=== PATIENT | male | born 2000 | race Caucasian/White ===

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

== ENCOUNTER 2020-07-09 06:16 | Outpatient (CLI) | payer OTHER, MEDICAID ==
[~2020-07-09] VITALS: Ht 167.7 cm; Wt 68.2 kg
[~2020-07-09 06:16] MED LIST changes: -ARIP5TAB12 GT; +ARIP5TAB12 PO; -DIVA125T2 GT; +DIVA125T2 PO; -IBUP-1773 GT; +IBUP-1773 PO; -LORA1TAB GT; +LORA1TAB PO; -ONDN4T GT; +ONDN4T PO; -POLY17PO6 GT; +POLY17PO6 PO; -PROM6.2516 GT; +PROM6.2516 PO
[2020-07-13] MEDS ORDERED: LACO150T2 PO (09:03)
== END 2020-07-13 15:23 | disposition home or self-care (01) ==
LOC: PREOP 06:16
PROVIDERS: ATTEND Dentist
DX: Z01.818 Encounter for other preprocedural examination (principal)

== ENCOUNTER 2020-07-14 10:35 | Day surgery (SDC) | payer OTHER, MEDICAID ==
[~2020-07-14] VITALS: Ht 167.7 cm; Wt 68.2 kg
[2020-07-14] VITALS (7 sets, daily range): BP systolic 103–134; BP diastolic 60–90
[~2020-07-14 10:35] MED LIST changes: +LACO150T2 PO
[2020-07-14] MEDS ORDERED: LACTATED RINGERS 1,000 ML IV PRN (11:00)
[2020-07-14] MEDS ORDERED: ONDANSETRON 4 MG/2 ML (SDV) Z0FRAN ONE (11:19)
[2020-07-14] MEDS ORDERED: proPOfol 200 MG/20 ML (DIPRIVAN) VIAL IV ONE (11:19)
[2020-07-14] MEDS ORDERED: ROCURONIUM 10 MG/ML 5 ML SYRINGE IV ONE (11:19)
[2020-07-14] MEDS ORDERED: LIDOCAINE PF 2% 5 ML (XYLOCAINE) VIAL ONE (11:19)
[2020-07-14] MEDS ORDERED: fentaNYL INJ 100 MCG/2 ML AMP ONE (11:19)
[2020-07-14] MEDS ORDERED: SEVOFLURANE (ULTANE) 15 ML INHAL SOLN ONE ×3 (11:19→12:59)
--- NOTE | 2020-07-14 11:41 | Progress Note-Pre Operative ---
Pre-Operative Progress Note H&P Reviewed The H&P was reviewed, patient examined and no changes noted. Date Seen by Provider: July 14, 2020 Time Seen by Provider: 11:41 Date H&P Reviewed: July 14, 2020 Time H&P Reviewed: 11:41 Pre-Operative Diagnosis: Dental caries, fractured nondenominational and uncooperative behavior ASHU BERNABE DMD July 14, 2020 11:41
[2020-07-14] MEDS ORDERED: GLYCOPYRROLATE 0.2 MG/ML (ROBINUL) 2 ML VIAL ONE (11:44)
[2020-07-14] MEDS ORDERED: NEOSTIGMINE 3 MG/3 ML VIAL ONE (11:44)
[2020-07-14] MEDS ORDERED: ONDANSETRON 4 MG/2 ML (SDV) Z0FRAN IVP PRN (13:30)
--- NOTE | 2020-07-14 14:59 | Anesthesia-General Post-Op ---
General Patient Condition Mental Status/LOC: Same as Preop Cardiovascular: Satisfactory Nausea/Vomiting: Absent Respiratory: Satisfactory Pain: Controlled Complications: Absent Post Op Complications Complications None Follow Up Care/Instructions Patient Instructions None needed. Anesthesia/Patient Condition Patient Condition Patient was seen after the procedure and he was doing well, no complaints, stable vital signs, no apparent adverse anesthesia problems. BRAD ABEL DO July 14, 2020 14:59
--- NOTE | 2020-07-16 16:11 | OPERATIVE REPORT ---
DATE OF SERVICE: 07/14/2020 PREOPERATIVE DIAGNOSIS: Dental caries and the inability to cooperate in the dental office. POSTOPERATIVE DIAGNOSIS: Confirmed and unchanged. SURGICAL PROCEDURE PERFORMED: Dental rehabilitation. DESCRIPTION OF PROCEDURE: After suitable premedication, nasoendotracheal intubation and general anesthesia, the following procedures were carried out. Local anesthesia consisting of approximately 1.5 mL of 2% lidocaine with epinephrine 1:100,000 were infiltrated. Decay noted clinically and radiographically on teeth 4, 12, 16, 20, 21, 29 and 30. Decay removed from tooth #4. Tooth was prepped for stainless steel crowns. Stainless steel crown cemented with RelyX cement. Tooth #12, decay removed from the distal facial. Tooth was isolated, etched, bonded and restored with Ketac Alexia on the distal facial surface. Tooth #16 decay removed. Tooth was isolated, etched, bonded and restored with Ketac Alexia on the occlusal surface. Tooth #20, decay removed and fractured hinduism removed. Tooth was isolated, etched, bonded and restored with Ketac Alexia on the occlusal surface. Tooth #21 decay removed. Tooth was isolated, etched, bonded and restored with Ketac Alexia on the medial buccal surface. Teeth 29 and 30 decay removed. Stainless steel crown was perforated on tooth #30 and removed. Teeth were prepped for stainless steel crowns. The stainless steel crowns were cemented with RelyX cement. Prophy and fluoride varnish completed. The patient was extubated and taken to recovery in a satisfactory condition. Postoperative instructions were reviewed with guardian. Job ID: [id number] DocumentID: [id number] Dictated Date: 07/16/2020 13:54:03 Workforce Analyst Date: 07/16/2020 16:11:21 Dictated By: ASHU BERNABE DDS
== END 2020-07-14 14:10 | disposition home or self-care (01) ==
LOC: SDC 10:35
PROVIDERS: ATTEND Dentist
DX: K02.9 Dental caries, unspecified (principal); F41.0 Panic disorder [episodic paroxysmal anxiety]; F84.0 Autistic disorder; F91.1 Conduct disorder, childhood-onset type; R56.9 Unspecified convulsions; Z79.899 Other long term (current) drug therapy; Z98.890 Other specified postprocedural states; Z88.8 Allergy status to other drugs, medicaments and biological substances; Z79.1 Long term (current) use of non-steroidal anti-inflammatories (NSAID); Z79.51 Long term (current) use of inhaled steroids; Z20.822 Contact with and (suspected) exposure to COVID-19
CPT/HCPCS: 87081

== ENCOUNTER → 2021-04-07 | Outpatient (CLI) | payer OTHER, MEDICAID | END | disposition home or self-care (01) | LOC: PREOP 05:37 | PROVIDERS: ATTEND Dentist Pediatric Dentistry | DX: Z01.818 Encounter for other preprocedural examination (principal) ==

== ENCOUNTER 2021-05-18 05:36 | Outpatient (CLI) | payer OTHER, MEDICAID ==
[~2021-05-18 05:36] MED LIST changes: +FLUT9.9S NS; +LORA-405 PO; +ONDA4TAB11 PO; +PROM50SU11 RC
== END 2021-05-18 17:29 ==
LOC: PREOP 05:36
PROVIDERS: ATTEND Dentist
DX: Z01.818 Encounter for other preprocedural examination (principal)

== ENCOUNTER → 2021-05-25 | Day surgery (SDC) | payer OTHER, MEDICAID ==
[2021-05-25] VITALS (7 sets, daily range): BP systolic 99–136; BP diastolic 51–110
[~2021-05-25] VITALS: Ht 167.7 cm; Wt 68.2 kg
[~2021-05-25] MED LIST changes: +FAMOTIDINE 20MG/2ML IV (PEPCID) IVP ONE; +GLYCOPYRROLATE 0.2 MG/ML (ROBINUL) 2 ML VIAL ONE; +LACTATED RINGERS 1,000 ML IV PRN; +LIDOCAINE PF 2% 5 ML (XYLOCAINE) VIAL ONE; +MIDAZOLAM 2 MG/2 ML (VERSED) VIAL ONE; +NEOSTIGMINE 3 MG/3 ML VIAL ONE; +NS IV 500 ML 500 ML IV PRN; +ONDANSETRON 4 MG/2 ML (SDV) Z0FRAN IVP ONE; +ONDANSETRON 4 MG/2 ML (SDV) Z0FRAN ONE; +PHENYLEPHRINE 0.25% NASAL SPR (NEO-SYNEPHRINE) 15 ML NS ONE; +PHENYLEPHRINE 100 MCG/ML 10 ML (ANESTHESIA) SYR ONE; +ROCURONIUM 10 MG/ML 5 ML SYRINGE IV ONE; +SEVOFLURANE (ULTANE) 15 ML INHAL SOLN ONE; +fentaNYL INJ 100 MCG/2 ML AMP ONE; +proPOfol 200 MG/20 ML (DIPRIVAN) VIAL IV ONE
--- NOTE | 2021-05-25 12:13 | Progress Note-Pre Operative ---
Pre-Operative Progress Note H&P Reviewed The H&P was reviewed, patient examined and no changes noted. Date Seen by Provider: May 25, 2021 Time Seen by Provider: 12:12 Date H&P Reviewed: May 25, 2021 Time H&P Reviewed: 12:12 Pre-Operative Diagnosis: Fractured/missing crowns and uncooperative behavior ASHU BERNABE DMD May 25, 2021 12:13
--- NOTE | 2021-05-26 07:23 | Anesthesia-General Post-Op ---
General Patient Condition Mental Status/LOC: Same as Preop Cardiovascular: Satisfactory Nausea/Vomiting: Absent Respiratory: Satisfactory Pain: Controlled Complications: Absent Post Op Complications Complications None Follow Up Care/Instructions Patient Instructions None needed. Anesthesia/Patient Condition Patient Condition Patient was doing well yesterday in PACU, no complaints, stable vital signs, no apparent adverse anesthesia problems. BRAD ABEL DO May 26, 2021 07:23
--- NOTE | 2021-06-08 00:49 | OPERATIVE REPORT ---
DATE OF SERVICE: 05/25/2021 PREOPERATIVE DIAGNOSIS: Dental caries, fractured crowns and inability to cooperate in the dental office. POSTOPERATIVE DIAGNOSIS: Confirmed and unchanged. SURGICAL PROCEDURE PERFORMED: Dental rehabilitation with an extraction. DESCRIPTION OF PROCEDURE: After suitable premedication, nasoendotracheal intubation and general anesthesia, the following procedures were carried out. Local anesthesia consisting of approximately 1.7 mL of 2% lidocaine with epinephrine 1:100,000 were infiltrated. Decay ____ fractured. Stainless steel crowns noted on teeth #4, 29 and 30. Crowns were removed from teeth #4, 29 and 30. Decay removed from teeth 29 and 30. New crowns cut, crimped and fitted and cemented with RelyX cement. Tooth #4 was extracted due to bruxism and inability to place new stainless steel crown due to pulp exposures. Prophy and fluoride varnish completed. The patient was extubated and taken to recovery in satisfactory condition. Postoperative instructions were reviewed with guardian. No complications noted. Job ID: [id number] DocumentID: [id number] Dictated Date: 06/07/2021 11:38:34 Telephone Instrument Supervisor Date: 06/07/2021 15:36:17 Dictated By: ASHU BERNABE DDS
== END | disposition home or self-care (01) ==
LOC: SDC 10:17
PROVIDERS: ATTEND Dentist
DX: S02.5XXA Fracture of tooth (traumatic), initial encounter for closed fracture (principal); K02.9 Dental caries, unspecified; F45.8 Other somatoform disorders; G80.9 Cerebral palsy, unspecified; R15.9 Full incontinence of feces; R60.0 Localized edema; G40.209 Localization-related (focal) (partial) symptomatic epilepsy and epileptic syndromes with complex partial seizures, not intractable, without status epilepticus; Z79.899 Other long term (current) drug therapy; X58.XXXA Exposure to other specified factors, initial encounter
CPT/HCPCS: 87081